=== PATIENT | female | born 1975 | race Caucasian/White ===

== ENCOUNTER 2020-02-10 02:49 | Emergency (ER) | payer MEDICAID, OTHER ==
[~2020-02-10] VITALS: Ht 170.2 cm; Wt 124.7 kg
[2020-02-10] MEDS ORDERED: MORPHINE SULFATE 4 MG/ML SYR/VIAL IV ONE (04:30)
[2020-02-10] MEDS ORDERED: ONDANSETRON HCL 4 MG/2 ML VIAL IV ONE (04:30)
[2020-02-10] MEDS ORDERED: LIDOCAINE 2% (LOCAL ANESTH.) PF 5ml SDV ONE ×2 (08:10→08:12)
[2020-02-10] MEDS ORDERED: LIDOCAINE 2%HCL (LOCAL ANESTH.) INJ 10ml MDV IJ ONE (08:15)
[2020-02-10 08:56] VITALS: BP 140/84
== END 2020-02-10 10:03 | disposition home or self-care (01) ==
LOC: ER 02:49 → EDBD 02:49 → ER 10:03
DX: S83.014A Lateral dislocation of right patella, initial encounter (principal); X50.1XXA Overexertion from prolonged static or awkward postures, initial encounter; Y93.84 Activity, sleeping; Y92.092 Bedroom in other non-institutional residence as the place of occurrence of the external cause; Y99.8 Other external cause status
CPT/HCPCS: 27560; 73560; 73562; 96374; 96375; 99285; J2001; J2270; J2405